=== PATIENT | female | born 1950 | race African-American/Black ===

== ENCOUNTER → 2018-02-04 | Outpatient (CLI) | payer BC, MEDICARE, OTHER ==
[~2018-02-04] MED LIST: ASPI81TA23 PO; BENI20TA25 PO; CARD240C6 PO; DARV PO; DICL50TA PO; DILT240C44 PO; FLUT50SP EACH NARE; FLUTI110I INH; IMIT100T PO; LEVO125T4 PO; LIFI1DRO EACH EYE; LINA145C PO; METF500T PO; MIRA50TA PO; MONT10TA2 PO; PIRB14I INH; PROT40TA PO; SYNT112T PO; TOPA50TA7 PO; VENTAER INH
--- NOTE | 2018-02-04 14:39 | RADRPT ---
EXAM DATE/TIME: 02/04/2018 14:04 [facility] COMPARISON: No previous studies available for comparison. INDICATIONS : Evaluate for pneumonia, pneumothorax or communicable disease. Pre op cystocele repair. MEDICAL HISTORY : Hypertension. Diabetes mellitus type II. Asthma SURGICAL HISTORY : Cholecystectomy. rib resection for thoracic outlet syndrome ENCOUNTER: Initial ACUITY: 1 day PAIN SCORE: 0/10 LOCATION: Bilateral chest FINDINGS: PA and lateral views of the chest demonstrate the lungs to be symmetrically aerated without evidence of mass, infiltrate or effusion. The cardiomediastinal contours are unremarkable. Osseous structure s are intact. CONCLUSION: No acute disease. Magdiel Greco MD on February 04, 2018 at 14:34 Board Certified Radiologist. This report was verified electronically.
--- NOTE | 2018-02-05 13:11 | EKG ---
Date Performed: 02/04/2018 Time Performed: 13:22:39 PTAGE: 67 years EKG: Sinus rhythm POSSIBLE ANTERIOR MYOCARDIAL INFARCTION, PROBABLY OLD BORDERLINE ECG Compared to PREVIOUS TRACING poor R wave progression is now present. This may reflect a lead change. Clinical correlation is recommended PREVIOUS TRACIN06/07/06 DOCTOR: Richard Calderon Interpretating Date/Time 02/05/2018 13:11:15
== END ==
LOC: CPRE 12:58
PROVIDERS: ATTEND Obstetrics & Gynecology
DX: Z01.810 Encounter for preprocedural cardiovascular examination (principal); Z01.811 Encounter for preprocedural respiratory examination; N81.89 Other female genital prolapse; N39.3 Stress incontinence (female) (male); R94.31 Abnormal electrocardiogram [ECG] [EKG]
CPT/HCPCS: 71046; 93005

== ENCOUNTER 2018-02-11 05:39 | Observation (INO) | payer BC, MEDICARE, OTHER ==
--- NOTE | 2018-02-04 12:37 | MH ---
cc: Shanti Krishnan MD DATE OF ADMISSION: 02/11/2018 SCHEDULED PROCEDURE: Cystocele repair, possible rectocele repair, transobturator tape and cystoscopy. HISTORY OF PRESENT CONDITION: The patient is a 67-year-old , black female, para 2, status post a distant hysterectomy, who has mixed incontinence that she finds intolerable. She has been on Myrbetriq for 2 years that has somewhat improve the overactive bladder component. However, she feels a bulge from the perineum when she is standing and has Valsalva. This is exacerbated by her being mildly overweight with a loss of urine on significant cough, laugh, or sneeze. She does not smoke, drink or use illicit drugs and she does not have chronic constipation. She has had 2 children vaginally. She has hyperlipidemia for which she takes pravastatin, GERD for which she takes pantoprazole, glaucoma for which she takes a number of drops, mild arthritis for which she takes diclofenac and hypertension for which she takes diltiazem. She has had no recent colds or infections. FAMILY HISTORY: Significant for hypertension and breast cancer in her mom. PHYSICAL EXAM: VITAL SIGNS: Her weight is 188. She is 5 foot, 6 inches. Her blood pressure today was 128/82. NECK: She has no thyroid enlargement. LUNGS: Clear. HEART: Regular. ABDOMEN: Somewhat obese. PELVIC: Perineum is mildly atrophic. Vault has mild apical descent. She had a second to third degree cystourethrocele with a bulge when she is standing and positive Q-tip test, negative dip and no significant rectocele or paravaginal defect. EXTREMITIES: Show some mild edema and some varicosities. IMPRESSION: This 67-year-old female in menopause, status post hysterectomy with symptoms of mixed incontinence partially addressed with Myrbetriq, but desires definitive therapy for the stress component. She is scheduled for a TOT cystocele repair and associated procedures. Risks, benefits, expectations, alternatives and failure rate have been described in detail. She has signed consents and is scheduled for 02/11/2017. Shanti Krishnan MD PPC/DL , 12:15 PM , 12:36 PM
[~2018-02-11] VITALS: Ht 167.6 cm; Wt 86.1 kg
[~2018-02-11 05:39] MED LIST changes: -BENI20TA25 PO; -CARD240C6 PO; -DARV PO; -PIRB14I INH; -SYNT112T PO
[2018-02-11] MEDS ORDERED: LACTATED RINGER'S 1000 ML IV PRN (06:00)
[2018-02-11] MEDS ORDERED: SODIUM CHLORID 0.9% 500 ML IV PRN (06:00)
[2018-02-11] MEDS ORDERED: METOPROLOL TARTRATE 25 MG TAB PO PRN (06:00)
[2018-02-11] MEDS ORDERED: SODIUM CHLORIDE 0.9% INJ 0 ML ONE (06:14)
[2018-02-11] MEDS ORDERED: CLINDAMYCIN PHOS 600 MG/4 ML VIAL ONE (06:14)
[2018-02-11] MEDS ORDERED: CLINDAMYCIN 600 MG/NS PREMIX 50 ML IV SCH (06:15)
[2018-02-11] MEDS ORDERED: ACETAMINOPHEN 1000 MG/100 ML 100 ML IV ONE ×2 (07:17→11:05)
[2018-02-11] MEDS ORDERED: BUPIVACAINE/EPINEPHRINE 0.5% PF 30 ML VIAL ONE (07:18)
[2018-02-11] MEDS ORDERED: FUROSEMIDE 40 MG/4 ML VIAL ONE (08:46)
[2018-02-11] MEDS ORDERED: ESTROGENS CONJUGATED VAG CREA 15 APPL/30 GM TUBE ONE (09:13)
[2018-02-11] MEDS ORDERED: SODIUM CHLORIDE 0.9% FLUSH 10 ML FLUSH IV FLUSH PRN (09:45)
[2018-02-11] MEDS ORDERED: ONDANSETRON HCL 4 MG/2 ML VIAL IVP PRN (09:45)
[2018-02-11] MEDS ORDERED: ZOLPIDEM TARTRATE 5 MG TAB PO PRN (09:45)
[2018-02-11] MEDS ORDERED: oxyCODONE/ACETAMINOPHEN 5 MG/325 MG TAB PO PRN (09:45)
[2018-02-11] MEDS ORDERED: PROMETHAZINE INJ 25 MG/ML VIAL IM PRN (09:45)
[2018-02-11] MEDS ORDERED: DO NOT ADM ANY ANTICOAGULANT DRUGS PRN (09:47)
[2018-02-11] MEDS ORDERED: MIDAZOLAM HCL 2 MG/2 ML VIAL ONE (09:53)
--- NOTE | 2018-02-11 10:10 | MP ---
cc: Shanti Krishnan MD, Shawn W DO DATE OF OPERATION: 02/11/2018 PREOPERATIVE DIAGNOSIS: Unacceptable leakage of urine with Valsalva and pressure from cystocele. POSTOPERATIVE DIAGNOSIS: Unacceptable leakage of urine with Valsalva and pressure from cystocele. PROCEDURE PERFORMED: Transobturator tape using Solyx approach and cystocele repair and cystoscopy. ANESTHESIA: General endotracheal. SURGEON: Shanti Krishnan MD. INTRAOPERATIVE CONSULT: Tate Muse MD, Urologist. FINDINGS: Examination under anesthesia revealed a significant cystocele, mild rectocele, but the apex is well elevated. Upon dissecting out the vaginal mucosa off the bladder, a large bladder was plicated and then a tape placed. The Solyx tape was used without difficulty and then cystoscopy revealed a very erythematous bladder with a lot of punctation and vessels and the ureters were slow to show any type of fluid; however, they were peristalsing very actively. Dr. Muse was brought down after 20 mg of Lasix and methylene blue to assure that she felt that they look like there were healthy ureters. There was no evidence of tape in the bladder. She tolerated this procedure well. The redundant tissue was removed. Mattress sutures were placed in a classic Mary Beth plication and then the vaginal mucosa was closed in a running interlocking fashion. Sponge, instrument, needle counts correct. DESCRIPTION OF PROCEDURE: The patient was identified as Oxana Sharma. Her permit was reviewed with her. She was taken to the operating room, administered 2 grams of Ancef. She was prepped and draped in the dorsal lithotomy position after general anesthesia and prepped and draped in the usual sterile fashion. A time-out was performed. Examination under anesthesia was performed and then the bladder mucosa was grasped with an Allis underneath the urethra and at the apex and infiltrated with Pitressin. Then, a midline incision was made and the bladder mucosa was very carefully dissected off the bladder and this dissection was carried through underneath the pubic symphysis on both sides. The bladder was plicated with several sutures of chromic and elevated out of the anticipated area for the Solyx. Then the Solyx was placed using the classic technique and the Eller catheter was removed and cystoscopy performed. There was no tape in the bladder. Both ureteral orifices were easily identified, open and peristalsing. Then, the cystoscopy was removed and the area was cut of redundant tissue. Mattress sutures were placed and then a chromic in a running non-interlocking fashion was placed. Final cystoscopy with Dr. Muse was done and was reassuring. The Eller was replaced. We put Premarin cream in. She was placed in dorsal supine position, awoken and taken to the recovery room in stable condition. Sahnti Krishnan MD PPC/DL , 09:51 AM , 10:09 AM
[2018-02-11] MEDS: LACTATED RINGER'S 1000 ML INJ 1,000 ML IV SCH ×2 (10:30→18:41)
--- NOTE | 2018-02-11 10:33 | PD.OP ---
Operative Report Date of Surgery: February 11, 2018 Preoperative Diagnosis: ANU cystocele mild rectocele Postoperative Diagnosis: same Procedure: TOT with solyx cystoscopy cystocele repair Anesthesia: GET Surgeon: Shanti Krishnan Registered Veterinary Technician(s): staff Operation and Findings: Shanti Mayer MD February 11, 2018 10:33
[2018-02-11] MEDS ORDERED: *morphine SULFATE 4 MG/ML PERIprocedure ONLY ONE (10:41)
[2018-02-11 12:00] VITALS: BP 109/55; PULSE 67; RESP 22; TEMP 98.4; O2SAT 96
[2018-02-11] MEDS ORDERED: LIDOCAINE HCL 1% PF 5 ML SYRINGE OTHER ONE (12:00)
[2018-02-11] MEDS ORDERED: DEXAMETHASONE SOD PHOS 4 MG/ML VIAL IV ONE (12:00)
[2018-02-11] MEDS ORDERED: PHENYLEPH/NS 1000 MCG/10 ML SYR IV ONE (12:00)
[2018-02-11] MEDS ORDERED: ONDANSETRON HCL 4 MG/2 ML VIAL IV ONE (12:00)
[2018-02-11] MEDS ORDERED: LACTATED RINGER'S 1000 ML INJ 1,000 ML IV ONE (12:00)
[2018-02-11] MEDS: DOCUSATE SODIUM 100 MG CAP PO SCH (12:00)
[2018-02-11] MEDS: IBUPROFEN 600 MG TAB PO PRN ×2 (12:07→17:43)
[2018-02-11] MEDS: oxyCODONE/ACETAMINOPHEN 5 MG/325 MG TAB PO PRN ×2 (12:08→17:16)
[2018-02-11] MEDS ORDERED: PILL SPLITTER OTHER PRN (15:30)
[2018-02-11 17:30] VITALS: BP 120/64; PULSE 86; RESP 20; TEMP 98.4; O2SAT 96
[2018-02-11] MEDS: metFORMIN HCL 500 MG TAB PO SCH (19:54)
[2018-02-11 20:23] VITALS: BP 101/67; PULSE 86; RESP 19; TEMP 98.4
[2018-02-11] MEDS ORDERED: MONTELUKAST SODIUM 10 MG TAB PO SCH (21:00)
[2018-02-11] MEDS ORDERED: SODIUM CHLORIDE 0.9% FLUSH 10 ML FLUSH IV FLUSH SCH (21:00)
[2018-02-11] MEDS ORDERED: DILTIAZEM-CD 240 MG CAP ER PO SCH (21:00)
[2018-02-11] MEDS ORDERED: TOPIRAMATE 25 MG TAB PO SCH (21:00)
[2018-02-11] MEDS ORDERED: PANTOPRAZOLE SOD 40 MG DELAYED RELEASE TAB PO SCH (21:00)
[2018-02-12 00:07] VITALS: BP 107/63; PULSE 74; RESP 19; TEMP 98.2
[2018-02-12] MEDS: IBUPROFEN 600 MG TAB PO PRN ×2 (02:52→13:16)
[2018-02-12] MEDS: oxyCODONE/ACETAMINOPHEN 5 MG/325 MG TAB PO PRN (02:52)
[2018-02-12] MEDS: LACTATED RINGER'S 1000 ML INJ 1,000 ML IV SCH (02:55)
[2018-02-12 03:53] VITALS: BP_SYST 100; BP_SYST 104; BP_DIAS 60; BP_DIAS 71; PULSE 70; PULSE 73; RESP 18; TEMP 98.1; TEMP 98.2
[2018-02-12] MEDS ORDERED: LEVOTHYROXINE SODIUM 125 MCG TAB PO SCH (06:00)
[2018-02-12 06:22] LABS: CALCIUM 8.9 MG/DL (8.5-10.1); CREATININE 1.22 MG/DL (0.50-1.00)
[2018-02-12 08:00] VITALS: BP 112/58; PULSE 69; RESP 18; TEMP 98.2; O2SAT 96
--- NOTE | 2018-02-12 08:23 | HHI.PR ---
Subjective Remarks Doing well, pain is well controlled, eating well. voided 300 post 200 cc instilled no bleeding feels need to move bowels Objective Vital Signs Vital Signs Date Time Temp Pulse Resp B/P (MAP) Pulse Ox O2 Delivery O2 Flow Rate FiO2 02/12/18 03:53 98.2 73 18 100/60 (73) 02/12/18 00:07 98.2 74 19 107/63 (78) 02/11/18 20:23 98.4 86 19 101/67 (78) 02/11/18 17:30 98.4 86 20 120/64 (82) 96 02/11/18 12:00 98.4 67 22 109/55 (73) 96 02/11/18 11:30 66 16 111/60 (77) 97 Room Air 02/11/18 11:00 66 16 110/65 (80) 100 Room Air 02/11/18 10:45 72 16 107/60 (76) 100 Room Air 02/11/18 10:30 66 16 108/59 (75) 100 02/11/18 10:15 66 16 105/55 (72) 100 Nasal Cannula 2 02/11/18 10:00 66 16 92/51 (65) 100 Nasal Cannula 2 02/11/18 09:45 97.5 68 16 94/55 (68) 98 Nasal Cannula 2 I/O 02/11/18 02/11/18 02/11/18 02/12/18 02/12/18 02/12/18 07:00 15:00 23:00 07:00 15:00 23:00 Intake Total 2000 ml 2220 ml Output Total 1560 ml 2550 ml 1850 ml Balance 440 ml -2550 ml 370 ml Intake Oral 720 ml IV Total 400 ml 1500 ml Other 1600 ml Output Urine Total 1550 ml 2550 ml 1850 ml Estimated Blood Loss 10 ml Result Diagram: 02/12/18 0503 Objective Remarks Chest is clear, regular rate and rhythm. Abdomen is soft and non-distended. perineum dry no CVAT Ext no CCE. A/P Assessment and Plan Post Op Day 1 Doing well Home today and return to office February 18 resume all home Shanti Grullon MD February 12, 2018 08:23
--- NOTE | 2018-02-12 08:25 | HHI.DCPOC ---
Discharge Care Plan Report Symptoms to Your Doctor -Temperature above 100.5 degrees -Redness, of incision or excessive or foul smelling drainage -Unusual pain or calf pain -Increased vaginal bleeding -Painful or difficulty urinating -Feelings of extreme sadness or anxiety after 2 weeks Goals to Promote Your Health * To prevent worsening of your condition and complications * To maintain your health at the optimal level Directions to Meet Your Goals Take your medications as prescribed Follow your dietary instruction Follow activity as directed Ensure plenty of rest for recovery Drink fluids for hydration Keep your appointments as scheduled Take your immunizations and boosters as scheduled If your symptoms worsen call your PCP, if no PCP go to Urgent Care Center or Emergency Room Smoking is Dangerous to Your Health. Avoid second hand smoke Call the 24-hour crisis hotline for domestic abuse at Shanti Krishnan MD February 12, 2018 08:25
[2018-02-12] MEDS ORDERED: TAMSULOSIN HCL 0.4 MG CAP PO SCH (09:00)
[2018-02-12] MEDS ORDERED: POLYETHYLENE GLYCOL 17 GM PKG PO ONE (09:00)
[2018-02-12] MEDS ORDERED: ASPIRIN EC 81 MG TABEC PO SCH (09:00)
[2018-02-12] MEDS ORDERED: ASPIRIN 81 MG CHEW TAB PO SCH (09:00)
[2018-02-12] MEDS: DOCUSATE SODIUM 100 MG CAP PO SCH (09:30)
[2018-02-12] MEDS: metFORMIN HCL 500 MG TAB PO SCH (09:30)
[2018-02-12 12:00] VITALS: BP 123/63; PULSE 77; RESP 20; TEMP 98.4; O2SAT 95
== END 2018-02-12 15:03 | disposition home or self-care (01) ==
LOC: HSDC 05:39 → HSDI 09:44 → H1EA 12:07
PROVIDERS: ADMIT Obstetrics & Gynecology; ATTEND Obstetrics & Gynecology
DX: N39.46 Mixed incontinence (principal); N81.10 Cystocele, unspecified; N81.6 Rectocele; E78.5 Hyperlipidemia, unspecified; K21.9 Gastro-esophageal reflux disease without esophagitis; I10 Essential (primary) hypertension; H40.9 Unspecified glaucoma; Z90.710 Acquired absence of both cervix and uterus
CPT/HCPCS: 00860; 57240; 57288; 80048; 96360; 96361; C1771; G0378; J0131; J1100; J1940; J2250; J2270; J2370; J2405; J3010; J7120

== ENCOUNTER → 2018-03-26 | Outpatient (CLI) | payer BC, MEDICARE, OTHER ==
--- NOTE | 2018-03-30 09:57 | RSPPFT ---
DATE OF PROCEDURE: 03/26/18 COMMENTS: VOLUMES DYNAMIC: FVC and FEV1 mildly reduced. STATIC: FRC mildly reduced, RV and TLC normal. FLOWS: FEV1% and FEF 25-75 normal. DIFFUSION: Normal. FLOW VOLUME LOOP: Mild restrictive change. IMPRESSION: Very mild restrictive ventilatory defect with no reduction in diffusion. There is no significant airways obstruction and no improvement post-bronchodilator.
== END ==
LOC: HRSP 07:32
PROVIDERS: ATTEND Internal Medicine
DX: J45.909 Unspecified asthma, uncomplicated (principal)
CPT/HCPCS: 94060; 94618; 94726; 94729; 95012